=== PATIENT | female | born 1945 | race Caucasian/White ===

== ENCOUNTER 2022-06-17 09:01 | Day surgery (SDC) | payer OTHER ==
[2022-06-17] MEDS ORDERED: Zoledronic Acid/Mannitol/Water 5 MG/100 ML INFUS.BOT IV ONE (09:15)
[2022-06-17 10:24] VITALS: BP 150/74; TEMP 98.2; O2SAT 100; BMI 30.8
== END 2022-06-17 09:57 | disposition home or self-care (01) ==
LOC: DS 09:01
PROVIDERS: ATTEND Nurse Practitioner Family
DX: M81.0 Age-related osteoporosis without current pathological fracture (principal)
CPT/HCPCS: 96365; J3489

== ENCOUNTER 2023-06-21 08:57 | Day surgery (SDC) | payer OTHER ==
[2023-06-21] MEDS ORDERED: Zoledronic Acid/Mannitol/Water 5 MG/100 ML INFUS.BOT IV ONE (09:15)
[2023-06-21 10:56] VITALS: BP 135/87; TEMP 97.3; O2SAT 99; BMI 32.0
== END 2023-06-21 09:55 | disposition home or self-care (01) ==
LOC: DS 08:57
PROVIDERS: ATTEND Nurse Practitioner Family
DX: K21.9 Gastro-esophageal reflux disease without esophagitis (principal)
CPT/HCPCS: 96365; J3489